=== PATIENT | female | born 1985 | race Caucasian/White ===

== ENCOUNTER 2020-06-29 09:52 | Outpatient (CLI) | payer OTHER, SELFPAY ==
--- NOTE | ~2020-06-29 | XR_ITS ---
EXAMINATION: XR chest 2V EXAM DATE: 06/29/2020 10:07 INDICATION: Weight loss. TECHNIQUE: Frontal and lateral projections of the chest obtained and reviewed. Comparison is made to prior examination from 09/11/2010. FINDINGS: The lungs are clear. There are no pleural effusions. The cardiomediastinal silhouette is within normal limits. There is no pneumothorax suspected. Mild thoracic dextrocurvature. IMPRESSION: No acute cardiopulmonary findings. Reviewed, dictated and finalized at location B. [employer] ATTENDANT
== END 2020-06-29 09:53 | disposition home or self-care (01) ==
PROVIDERS: PCP Family Medicine; Visit Provider Obstetrics & Gynecology
DX: R63.4 Abnormal weight loss (principal)
CPT/HCPCS: 71046

== ENCOUNTER 2021-11-27 12:24 | Outpatient (CLI) | payer OTHER, SELFPAY ==
[2021-11-27 13:01] LABS: Basophils Percent Auto 0.5 % (0.2-1.2); Eosinophils Absolute Auto 0.3 K/mm3 (0-0.3); Eosinophils Percent Auto 4.6 % (0-4.4); Hematocrit 42.1 % (37.0-47.0); Hemoglobin 13.7 g/dL (12.0-15.0); Immature Granulocyte Absolute 0.02 K/mm3 (0.00-0.031); Immature Granulocyte Percent A 0.3 % (0-0.5); Lymphocytes Absolute Auto 2.13 K/mm3 (0.9-3.2); Lymphocytes Percent Auto 33.8 % (18.3-44.2); Mean Corpuscular HGB Conc 32.5 g/dl (32-36); Mean Corpuscular Hemoglobin 30.9 pg (26-34); Mean Platelet Volume 9.4 fl (7.4-10.4); Monocytes Absolute Auto 0.5 K/mm3 (0.1-0.6); Monocytes Percent Auto 8.1 % (2.6-8.5); Neutrophils Absolute Auto 3.3 K/mm3 (1.3-6.7); Neutrophils Percent Auto 52.7 % (45.5-73.1); Platelet Count Result 280 k/mm3 (150-375); Red Blood Count 4.43 M/mm3 (4.2-5.4); Red Cell Distribution Width 13.2 % (11.5-14.5); White Blood Count 6.3 K/mm3 (4.5-10.0)
== END 2021-11-27 12:25 | disposition home or self-care (01) ==
PROVIDERS: PCP Family Medicine; Visit Provider Obstetrics & Gynecology
DX: N92.6 Irregular menstruation, unspecified (principal); Z01.818 Encounter for other preprocedural examination
CPT/HCPCS: 36415; 85025; 86850; 86900; 86901

== ENCOUNTER 2021-12-01 00:23 | Day surgery (SDC) | payer OTHER, SELFPAY ==
--- NOTE | 2021-11-27 10:43 | SUR.PREOP ---
Report to the Outpatient Waiting Room, entrance under the green pavilion located off [facility], at time 0930 on date 12/01/21. OR Time: 1130. - You and your visitor will be asked a series of questions to screen for COVID 19 for your protection. - Only one visitor is allowed at this time. - The patient visitor is requested to leave or wait in car when not with patient. - A mask is required within the hospital. Patients may have clear liquids (water, carbonated beverages, clear teas, apple juice) until 3 hours prior to surgery with a maximum of 20 ounces. - NO CLEAR LIQUIDS AFTER 0830 - No food from midnight until time of surgery - Infants may have breast milk until 4 hours before surgery, formula 6 hours prior to surgery. - Children will be allowed to drink immediately following surgery. If applicable, please bring a bottle or sippy cup to assist with drinking. Juice, water, soda, and popsicles are readily available. For infants on formula, please bring formula the day of surgery. Pacifiers are allowed. Please no make-up, nail honduran, hairspray, perfume, deodorant, or body powder the day of surgery. No jewelry (including any body piercings) or valuables the day of surgery, leave them at home. Please take a shower or bath the night before, or the morning of, surgery with an antibacterial soap. Wear comfortable, loose fitting clothing. Children are encouraged to wear pajamas. - Jewelry must be removed prior to entering the operating room. Rings and piercings that are not removed may be cut off. - The hospital will not accept responsibility for valuables. - Please leave all valuables, including medications, at home the day of surgery. If you are going home after surgery, a licensed tow bar driver must drive you home. - NO public transportation without another adult. - We recommend that an adult stay with you for 24 hours following discharge. - We also recommend that you do not drive, make important decision, drink alcoholic beverages, or take any drugs that were not prescribed by your health care provider for at least 24 hours after your discharge time. For Pediatric surgeries, we recommend two adults accompany the child home (only one inside the building at this time). Follow any additional instructions given to you from your surgeon. If you or anyone in your household have experienced Covid symptoms in the past week, please notify your surgeon or the nurse liaison at the phone number below for possible testing. Telephone instructions given to VINICIO SMITH and asked if any additional questions and then verbalized understanding. Patient advised to call surgeon office or pre surgery nurse liaison [phone] if any additional questions.
--- NOTE | 2021-11-30 07:34 | PM.IMHP ---
H&P: HPI History of Present Illness Date/Time: 11/30/21 07:34 Chief Complaint: this is 36-year-old female with enlarged uterus pelvic pain dyspareunia and bleeding refractory to medical therapy. Risks and benefits reviewed including but not exclusive of , aspiration were removed, bleeding, transfusion, perforation injury to bowel, bladder, ureters, or other internal organs with need for open laparotomy. She received the ACOG handouts entitled hysterectomy as well as de Lin handout. She had all questions answered and asked to proceed PMFSH Family History Family History Father Hypertension Family history of elevated blood lipids Mother Family history of elevated blood lipids Social History Social History Years smoked: 8 Smoking status: Former smoker Smoking end date: 07/08/13 Alcohol intake: current Substance use: never Spiritual care concerns: No Meds Home Medications and Allergies Home Medications Medication Instructions Recorded Confirmed Type No Home Medications 11/27/21 11/27/21 History Allergies Allergy/AdvReac Type Severity Reaction Status Date / Time codeine Allergy Severe Difficulty Verified 11/27/21 10:34 Breathing sumatriptan Allergy Severe Other Verified 11/27/21 10:34 Exam : External Female Exam: normal external appearance Speculum Exam - Vagina: normal appearance of the vagina Speculum Exam - Cervix: Cervical os closed Bimanual exam- vagina & uterus: enlarged Bimanual Exam- Adnexa, other: adnexae mobile Assessment and Plan Assessment and plan (1) Enlarged uterus: Code(s): N85.2 - Hypertrophy of uterus Status: Acute Assessment and Plan: robotic total vaginal hysterectomy and bilateral salpingectomies (2) Dyspareunia: Status: Acute (3) Excessive bleeding: Code(s): R58 - Hemorrhage, not elsewhere classified Status: Acute
[2021-12-01] VITALS (12 sets, daily range): BP systolic 99–114; BP diastolic 60–92; PULSE 61–96; RESP 12–20; TEMP 36.1–36.6; O2SAT 96–100
--- NOTE | 2021-12-01 07:15 | WPDHPUPDATE1 ---
History and Physical Update Update Date/Time: 12/01/21 07:15 History and Physical has been reviewed, including an updated exam of the patient. There are NO changes in the patient's condition. Risks, benefits, and alternatives have been discussed and questions answered. Patient agrees to proceed with procedure.
[2021-12-01] MEDS: ACETAMINOPHEN 500 MG TABLET 1000 MG PO (09:33)
[2021-12-01] MEDS: LACTATED RINGERS 1,000 ML 30 ML IV CONT ×2 (09:50→12:14)
[2021-12-01] MEDS: KETOROLAC 15 MG/ML VIAL (*BKC) IV PUSH (09:52)
--- NOTE | 2021-12-01 09:54 | WPDANESEPPF ---
Anes - Initial Pre Proc Eval Procedure: Operation Date: 12/01/21 11:30 Proposed Procedures p Robotic Assisted Total Vaginal Hysterectomy with Bilateral Salpingectomy - Kashif Sanchez MD Date/Time: 12/01/21 09:54 Surgeon: Kashif Sanchez MD Pre Op Diagnosis: irrg. excessive bleeding, pelvic pain, dyspareunia Patient Data Age: 36 Gender: F Height: 1.65 m Weight: 52.75 kg Last Vital Signs Temp 36.3 C L 12/01/21 09:20 Pulse 86 12/01/21 09:20 Resp 20 12/01/21 09:20 BP 114/71 12/01/21 09:20 Pulse Ox 100 12/01/21 09:20 O2 Del Method Room Air 12/01/21 09:20 Allergies Allergy/AdvReac Type Severity Reaction Status Date / Time codeine Allergy Severe Difficulty Verified 11/27/21 10:34 Breathing sumatriptan Allergy Severe OUT OF Verified 12/01/21 09:40 BODY EXPERIENCE FOR 1 HOUR Home Medications Medication Instructions Recorded Confirmed Type diphenhydramine HCl 50 mg capsule 150 mg PO HS 12/01/21 12/01/21 History Patient hx anesthesia problems: none Family hx anesthesia problems: none Results Review: All pre-operative results and documents have been reviewed as part of the pre-operative evaluation. [facility] Family History Family History Father Hypertension Family history of elevated blood lipids Mother Family history of elevated blood lipids Social History Social History Years smoked: 8 Smoking status: Former smoker Smoking end date: 07/08/13 Alcohol intake: current Substance use: never Spiritual care concerns: No Anes - Eval Final PreProcedure Day of Procedure 12/01/21 09:54 Patient weight: normal Heart: regular rate and rhythm Lungs: clear to auscultation Neurological: alert and oriented Last oral intake: >/= 8 hours ASA classification: II Emergent: no Anesthetic plan: proceed Anesthesia type and monitoring: general ETT and standard monitoring Results Review: All pre-operative results and documents have been reviewed as part of the pre-operative evaluation. Informed Consent: The patient's anesthetic plan and its attendant risks and benefits were discussed with the patient/family/POA. Questions were solicited and answers provided to the satisfaction of the patient/family/POA.
--- NOTE | 2021-12-01 11:45 | SUR.OPER ---
UTERUS [id number]
--- NOTE | 2021-12-01 12:05 | W.PM.PROC2 ---
Procedure Note - Detailed Date of Procedure 12/01/21 Pre-op Diagnosis irrg. excessive bleeding, pelvic pain, dyspareunia Post-op Diagnosis Same Procedure Performed Robotic total vaginal hysterectomy and bilateral salpingectomy Surgeon Kashif Sanchez MD Anesthesia General Indications this is 36-year-old female with chronic pelvic pain bleeding enlarged uterus Findings enlarged uterus. Normal-appearing ovaries and tubes Description of Procedure the patient was prepped draped in the normal sterile fashion placed in the dorsal lithotomy position. Under excellent general trach anesthesia weighted speculum was placed in posterior fornix of vagina. Anterior lip of the cervix grasped with single-tooth tenaculum and the uterus sounded to 11cm. Serial dilatation with fragmented dilators performed. This was followed by passage of the 10. CHASE 3. Cold. Next 16 [place] catheter was placed in the bladder and drained of urine. The weighted speculum and tenaculum were removed and the gloves were changed. A supraumbilical incision made the Veress needle passed in the abdomen. Abdomen filled with CO2 gas [id number]. The 8mm trocar advanced downside visualized no injury seen. Patient placed in Trendelenburg and right left lateral quadrant incisions made. The 8mm trocars advanced under direct visualization assuring injury. A right upper quadrant incision made the 10mm trocar advanced under direct visualization assuring. The robot was docked. Attention was turned to the console. Left round ligament grasped, burned, cut. Anterior bladder flap was formed by sharply dissecting the peritoneum and reflecting the bladder caudally away from this incision to the opposite round ligament was clamped, burned, cut. Next the left fallopian tube was sharply dissected away from the ovarian complex. This was left attached to the uterus at its origination. This was repeated on the contralateral side to remove the right tube left utero-ovarian ligament was clamped, burned, cut and brought to the level of previously cut round ligament conserving left ovary. Conserving the right ovary the utero-ovarian ligament on the right was clamped, burned, cut and brought to the level of previously cut round ligament. Next the cardinal broad ligaments on the left were serially skeletonized. These were clamped, burned, cut and brought to the level of the uterine vessels. These vessels were clamped, burned, cut. In like fashion the cardinal broad ligaments on the right were serially skeletonized. These were clamped, burned, cut until the uterine vessels could be seen on the right. These were individually clamped, burned, cut. Blanching of the uterus was noted and a colpotomy incision was then made the cervix uterus and tubes removed through the vagina. The vagina was then closed with continuous running 0V lock from lateral edge to lateral edge back to the midline. Irrigation undertaken to clear blood loss estimated 25cc. The robot was removed. The gas removed from the and the trocars removed. The incisions closed with 4 Monocryl. Blood loss estimated at25cc. All sponge, needle, instrument counts were correct. There were no immediate complications Estimated Blood Loss 25 Drains No Packing No Pathology Yes Complications No immediate complications Condition Stable Disposition PACU
[2021-12-01] MEDS: fentaNYL CITRATE INJ (*CRX) 100 MCG/2 ML VIAL 25 MCG IV PUSH ×8 (12:25→13:15)
[2021-12-01] MEDS: diphenhydrAMINE HCl INJ 50 MG/ML VIAL 25 MG IV PUSH (13:21)
[2021-12-01] MEDS: DEXTROSE 5%/LACTATED RINGERS 1,000 ML 125 ML IV CONT (14:47)
[2021-12-01] MEDS: ONDANSETRON INJ 4 MG/2 ML VIAL IV PUSH (14:47)
[2021-12-01] MEDS: KETOROLAC 30 MG/ML VIAL (*BKC) IV PUSH (14:59)
[2021-12-01] MEDS: SIMETHICONE 80 MG TAB.CHEW PO (14:59)
--- NOTE | 2021-12-01 15:51 | ADMGEN ---
1355-This patient, Rebekah Jones, was admitted to OB 2nd Floor Room 280-00. Patient/family oriented to hospital policies and general routines including ID bracelet, bed and alarms, visiting hours, pain management, procedures, bathroom and other care routines, personal items, smoking policy, room service/diet, and visiting hours. Information on how to activate the Rapid Response Team has been discussed. Patient/Family are encouraged to report perceived risks to care and to ask questions if they do not understand what they are told or what they should do.
[2021-12-01] MEDS: DOCUSATE SODIUM 100 MG CAPSULE PO (18:11)
[2021-12-01] MEDS: ZOLPIDEM TARTRATE (*CRX) 5 MG TABLET PO (20:50)
[2021-12-02] MEDS: SIMETHICONE 80 MG TAB.CHEW PO ×3 (02:05→12:43)
[2021-12-02] MEDS: IBUPROFEN 600 MG TABLET PO ×2 (02:05→10:19)
[2021-12-02] MEDS: HYDROcodone/acetaminophen (*CRX) 5-325 MG TABLET 1 TAB PO ×2 (02:05→10:18)
[2021-12-02 04:45] VITALS: BP 90/53; PULSE 94; RESP 16; TEMP 37.2
[2021-12-02 05:06] LABS: Basophils Percent Auto 0.3 % (0.2-1.2); Eosinophils Absolute Auto 0.1 K/mm3 (0-0.3); Eosinophils Percent Auto 0.6 % (0-4.4); Hematocrit 32.9 % (37.0-47.0); Hemoglobin 10.8 g/dL (12.0-15.0); Immature Granulocyte Absolute 0.03 K/mm3 (0.00-0.031); Immature Granulocyte Percent A 0.3 % (0-0.5); Lymphocytes Absolute Auto 2.11 K/mm3 (0.9-3.2); Lymphocytes Percent Auto 17.9 % (18.3-44.2); Mean Corpuscular HGB Conc 32.8 g/dl (32-36); Mean Corpuscular Hemoglobin 31.4 pg (26-34); Mean Corpuscular Volume 95.6 fl (80-100); Mean Platelet Volume 9.9 fl (7.4-10.4); Monocytes Percent Auto 8.1 % (2.6-8.5); Neutrophils Absolute Auto 8.6 K/mm3 (1.3-6.7); Neutrophils Percent Auto 72.8 % (45.5-73.1); Platelet Count Result 232 k/mm3 (150-375); Red Blood Count 3.44 M/mm3 (4.2-5.4); Red Cell Distribution Width 13.2 % (11.5-14.5); White Blood Count 11.8 K/mm3 (4.5-10.0)
[2021-12-02 06:52] VITALS: BP 91/59; PULSE 98; RESP 18; TEMP 37.1; O2SAT 99
--- NOTE | 2021-12-02 08:13 | PM.DS ---
DS: Admitting Diagnosis Discharge Date 12/02/21 Admitting Diagnosis abnormal uterine bleeding DS: Discharge Diagnosis Discharge Diagnosis (1) Dyspareunia: Status: Acute (2) Enlarged uterus: Code(s): N85.2 - Hypertrophy of uterus Status: Acute (3) Excessive bleeding: Code(s): R58 - Hemorrhage, not elsewhere classified Status: Acute DS: Summary Hospital Course Hospital Course: Rebekah Jones was admitted after robotic assisted total laparoscopic hysterectomy and bilateral salpingectomy for abnormal uterine bleeding. The above procedure was performed with no complications. She is doing well post op. She states her pain is well controlled with PO medications. She reports minimal bleeding. She is ambulating up to the chair. Her segovia catheter was removed. She is tolerating PO without N/V. She reports passing flatus. Status at Discharge Overall status at discharge: patient is progressing back to baseline Time Spent with Patient Time attestation: Total time spent providing and/or coordinating discharge services: Time spent: Less than 30 minutes Exam Const: General: comfortable and no acute distress Limitations: no limitations Resp: Effort & Inspection: normal respiratory effort Auscultation: clear to auscultation bilaterally Cardio: Rate: regular rate Rhythm: regular rhythm GI: Inspection: non-distended GI Palp: Yes Soft to palpation, Yes Tenderness to palpation present (GI) (milder tenderness to deep palpation) and No Guarding due to palpation present (GI) Auscultation: normal bowel sounds Other: incisions C/D/I covered with dermabond Urinary Catheter: Urinary Catheter: urine clear Skin: General skin exam: normal color Extrem: General: normal to inspection Psych: Mental Status: mental status grossly normal Affect: normal affect DS: Data Data Completed and Pending Pending studies at discharge: Pending at discharge 12/01/21 11:37 Surgical [PTH] Routine Labs on day of discharge: Labs from last 24 hours 12/02/21 04:43 WBC 11.8 H RBC 3.44 L Hgb 10.8 L Hct 32.9 L MCV 95.6 MCH 31.4 MCHC 32.8 RDW 13.2 Plt Count 232 MPV 9.9 Immature Gran % (Auto) 0.3 Neut % (Auto) 72.8 Lymph % (Auto) 17.9 L [place] % (Auto) 8.1 Eos % (Auto) 0.6 Baso % (Auto) 0.3 Lymph # (Auto) 2.11 [place] # (Auto) 1.0 H Eos # (Auto) 0.1 Baso # (Auto) 0.0 Abs Immat Gran (auto) 0.03 Absolute Neuts (auto) 8.6 H Absolute Nucleated RBC 0.0 Nucleated RBC % 0.0 Discharge Plan Discharge Patient Disposition: Home, Self-Care Patient Instructions: Hysterectomy (DC) Stand Alone Forms: General Discharge Instructions Discharge Medications: New hydrocodone-acetaminophen 5-325 mg tablet 1 tablet PO Q4H PRN (Reason: pain) Qty: 30 0RF No Action diphenhydramine HCl [Sleepinal Maximum Strength] 50 mg Capsule 150 mg PO HS
[2021-12-02 10:15] VITALS: BP 107/70; PULSE 90; RESP 18; TEMP 37.2; O2SAT 98
[2021-12-02] MEDS: DOCUSATE SODIUM 100 MG CAPSULE PO (10:18)
[2021-12-02] MEDS: ENOXAPARIN 40 MG/0.4 ML SYRINGE SUB-Q (10:20)
[2021-12-02] MEDS: ONDANSETRON HCL ODT 4 MG TABLET PO (12:43)
== END 2021-12-02 12:49 | disposition home or self-care (01) ==
LOC: ANHSURGERY 12:20 → ANHOB2 13:47
PROVIDERS: PCP Family Medicine; Visit Provider Obstetrics & Gynecology
PROC: (CPT 58552; principal; 2021-12-01 11:30)
DX: N93.9 Abnormal uterine and vaginal bleeding, unspecified (principal); R10.2 Pelvic and perineal pain; N80.0 Endometriosis of uterus; N94.10 Unspecified dyspareunia; Z87.891 Personal history of nicotine dependence
CPT/HCPCS: 58552; S2900; 36415; 85025; 86850; 86900; 86901; 88307; 99199; A9270; J1100; J1200; J1650; J1885; J2250; J2405; J2704; J2710; J3010; J7030; J7120; J7121

== ENCOUNTER 2022-11-03 10:21 | Emergency (ER) | payer OTHER, SELFPAY ==
[2022-11-03 10:45] VITALS: BP 108/70; PULSE 81; RESP 18; TEMP 36.8; O2SAT 100
--- NOTE | 2022-11-03 10:59 | ED.FEMALEGU ---
HPI - Female Genitourinary General Chief complaint: Urogenital-Female Stated complaint: UTI Time Seen by Provider: 11/03/22 10:59 Source: patient, RN notes reviewed and old records reviewed Mode of arrival: ambulatory Limitations: no limitations History of Present Illness HPI Narrative: 37-year-old female presents to the [facility] with concerns for UTI. Has taken azo. Symptoms started yesterday. Reports that her bladder never feels empty, burning with urination, frequency and urgency. Has a history of UTIs. Denies chances of MD elicited complaint: UTI Related Data Home Medications Medication Instructions Recorded Confirmed duloxetine 11/03/22 11/03/22 Allergies Allergy/AdvReac Type Severity Reaction Status Date / Time codeine Allergy Severe Difficulty Verified 11/03/22 10:32 Breathing sumatriptan Allergy Severe OUT OF Verified 11/03/22 10:32 BODY EXPERIENCE FOR 1 HOUR Review of Systems Review of Systems: All systems reviewed & are unremarkable except as noted in HPI and below Constitutional: Constitutional: Reports no additional constitutional complaints Eyes: Eyes: Reports no additional eye complaints ENT: Reports system reviewed and no additional complaints, except as documented Cardiovascular: Cardiovascular: Reports no additional cardiovascular complaints, Denies chest pain and Denies dyspnea Respiratory: Respiratory: Reports no additional respiratory complaints, Denies chest congestion, Denies cough and Denies dyspnea Gastrointestinal: Gastrointestinal: Reports no additional gastrointestinal complaints, Denies abdominal pain, Denies nausea and Denies vomiting Genitourinary: Genitourinary: Reports as per HPI Musculoskeletal: Musculoskeletal: Reports no additional musculoskeletal complaints Integumentary/Breasts: Skin/Breast: Reports system reviewed and no additional complaints, except as docu Neurologic: Reports system reviewed and no additional complaints, except as documented Psychiatric: Psychiatric: Reports no additional psychiatric complaints Allergic/Immunologic: Allergic/Immunologic: Reports no additional allergic/immunologic complaints [facility] Family History Family History Father Hypertension Family history of elevated blood lipids Mother Family history of elevated blood lipids Social History Social History Years smoked: 8 Smoking status: Former smoker Smoking end date: 07/08/13 Alcohol intake: current Substance use: never Spiritual care concerns: No Comments At the time of my signature, I reviewed and agree with the nursing past medical, surgical, social, and family history. There is no relevant family history pertinent to the patient complaint. Exam Const: General: cooperative, healthy appearing, comfortable, no acute distress, well developed, alert and well nourished Nutritional Appearance: well nourished Orientation/consciousness: patient oriented x3 Limitations: no limitations HENMT: Head: normal to inspection Ears: hearing grossly normal bilaterally and external ears normal Face/Nose/Sinus: Normal external nose present, Normal nares present, Normal nasal mucous membranes and turbinates present and normal facial exam Face and sinus: normal facial exam Mouth: Yes Normal oral and palatal mucosa present, Yes lip normal and Yes moist mucous membranes Throat: posterior oropharynx normal and uvula midline Eyes: General: appearance normal, both eyes and all related structures Alignment and Position: alignment normal Periorbital: periorbital findings normal Conjunctivae: conjunctivae normal Pupils: Equal, round and reactive pupils present EOM: EOMs intact bilaterally Neck: Neck: normal visual inspection, full ROM, no lymphadenopathy and no meningeal signs Chest: Chest palpation & inspection: normal inspection of the
== END 2022-11-03 11:00 | disposition home or self-care (01) ==
PROVIDERS: Emergency Provider Nurse Practitioner; PCP Family Medicine
DX: N39.0 Urinary tract infection, site not specified (principal); Z87.891 Personal history of nicotine dependence
CPT/HCPCS: 81003; 87077; 87086; 87186; 99213; G0463

== ENCOUNTER 2024-04-18 14:32 | Emergency (ER) | payer OTHER, SELFPAY ==
--- NOTE | ~2024-04-18 | XR_ITS ---
EXAM: XR ankle LT min 3V DATE: 04/18/2024 14:45 HISTORY: injury, pain and swelling . COMPARISON: None available. FINDINGS: Normal mineralization. No fracture or dislocation. No lytic or blastic lesion. Joint space s are maintained. No erosion or periosteal change. Soft tissues within normal limits. IMPRESSION: No acute osseous finding in the left ankle. Reviewed, dictated and finalized at location K.
[2024-04-18 14:46] VITALS: BP 116/60; PULSE 100; RESP 18; TEMP 37.4; O2SAT 99
--- NOTE | 2024-04-18 14:51 | ED.LOWEXIN ---
HPI - Extremity Injury (Lower) General Chief Complaint: Extremity Injury, Lower Stated Complaint: Left Ankle Pain Time Seen by Provider: 04/18/24 14:51 Source: patient Mode of arrival: ambulatory Limitations: no limitations History of Present Illness HPI Narrative: 38-year-old female presents with complaint of left ankle pain and swelling. 1 hour prior to arrival patient slipped down stairs and twisted left ankle. Ambulatory with limp. Reports decreased range of motion. Distal neurovascularly intact. All systems reviewed and negative except as noted above. Related Data Home Medications Medication Instructions Recorded Confirmed duloxetine 60 mg capsule,delayed 60 mg PO DAILY 04/18/24 04/18/24 release ropinirole 0.25 mg tablet 0.25 mg PO HS 04/18/24 04/18/24 trazodone 50 mg tablet 50 mg PO HS 04/18/24 04/18/24 Allergies Allergy/AdvReac Type Severity Reaction Status Date / Time codeine Allergy Severe Difficulty Verified 04/18/24 14:34 Breathing sumatriptan Allergy Severe OUT OF Verified 04/18/24 14:34 BODY EXPERIENCE FOR 1 HOUR Review of Systems Review of Systems: CONSTITUTIONAL: Denies fever, chills, or sweats. EYES: Denies visual changes, redness, or discharge. ENT: Denies rhinorrhea, congestion, sore throat, or otalgia. CARDIOVASCULAR: Denies chest pain, palpitations, or edema. RESPIRATORY: Denies cough or dyspnea. GASTROINTESTINAL: Denies abdominal pain, nausea, vomiting, or diarrhea. GENITOURINARY: Denies dysuria or hematuria. SKIN: Denies rash or itching. MUSCULOSKELETAL: Reports pain and swelling to left ankle. NEUROLOGIC: Denies headache, numbness, or weakness. PSYCHIATRIC: Denies anxiety or depression. All other systems reviewed are negative, except as documented in HPI. [facility] Family History Family History Father Hypertension Family history of elevated blood lipids Mother Family history of elevated blood lipids Social History Social History Years smoked: 8 Smoking status: Former smoker Smoking end date: 07/08/13 Alcohol intake: current Substance use: never Spiritual care concerns: No Comments At time of signature, agree with nursing past medical, surgical, social and family history. There is no relevant family history pertinent to the presenting complaint. Exam Narrative: GENERAL: This is a well-nourished, well-developed patient, in no apparent distress. HEAD: normocephalic, atraumatic. EYES: PERRL. Sclera clear/white. Vision is grossly intact. EARS: External ears normal NOSE: External nose normal NECK: Neck supple, non-tender without lymphadenopathy, masses or thyromegaly. CARDIOVASCULAR: Regular rate and rhythm without murmurs, gallops, or rubs. RESPIRATORY: Clear to auscultation. Breath sounds equal bilaterally. No wheezes, rales, or rhonchi. SKIN: warm, Dry, intact with no suspicious lesions or rash, good texture and turgor. NEURO: awake, alert, and oriented to person, place and time. There were no obvious focal neurologic abnormalities. EXTREMITIES: Tenderness and swelling to lateral aspect of left ankle with decreased range of motion due to pain. Distal neurovascularly intact, DP 2+ Course Course Level of Care: Express Care Visit Vital Signs Vital signs: Vital Signs Temperature 37.4 C 04/18/24 14:46 Pulse Rate 100 04/18/24 14:46 Respiratory Rate 18 04/18/24 14:46 Blood Pressure 116/60 04/18/24 14:46 Pulse Oximetry 99 04/18/24 14:46 Oxygen Delivery Room Air 04/18/24 14:46 Temperature 37.4 C 04/18/24 14:46 Pulse Rate 100 04/18/24 14:46 Respiratory Rate 18 04/18/24 14:46 Blood Pressure 116/60 04/18/24 14:46 Pulse Oximetry 99 04/18/24 14:46 Oxygen Delivery Room Air 04/18/24 14:46 reviewed MDM - Extremity Injury (Lower) MDM Narrative Medical decision mari
== END 2024-04-18 15:05 | disposition home or self-care (01) ==
PROVIDERS: Emergency Provider Nurse Practitioner Family; PCP Student in an Organized Health Care Education/Training Program
DX: S93.402A Sprain of unspecified ligament of left ankle, initial encounter (principal); Z79.899 Other long term (current) drug therapy; Z87.891 Personal history of nicotine dependence; W10.9XXA Fall (on) (from) unspecified stairs and steps, initial encounter
CPT/HCPCS: 73610; 99213; G0463